=== PATIENT | male | born 1990 | race Caucasian/White ===

== ENCOUNTER 2025-03-13 12:32 | Emergency (ER) | payer BC, SELFPAY ==
--- OUTSIDE RECORDS SUMMARY | 2025-03-13 11:00 | XMS_ITS | Encounter Summary ---
Author Organization [facility] Address [address] [place], [place] [id number] Phone [email or web address] Care Team Providers Care Car Spotter Name Role Phone Provder, No Primary Care Provider Unavailabl e Reason for Visit * Reason Comments Heart Issue Encounter Details Date Type Department Care Team (Latest Contact Info) Description 03/13/2025 11:00 AM EDT Clinical Support [facility] [place] [id number] [facility] [address] [place] [address] Julieta Newton MD [address] [place] [address] Chest pain, unspecified type (Primary Dx) Social History Tobacco Use Types Packs/Day Years Used Date Smoking Tobacco: Never Smokeless Tobacco: Current Tobacco Cessation:Ready to Q uit: Not Asked; Counseling Given: Not Answered Intimate Partner Violence Answer Date R ecorded Insults You Not on file 10/01/2020 Threatens You Not on file 10/01/2020 Screams at You Not on file 10/01/2020 Physically Hurt Not on file 10/01/2020 Intimate Partner Violence Score Not on file 10/01/2020 Depression Answer Date Recorded PHQ Total Score 0 05/18/2022 Stress Answer Date Recorded Stress in your Life Not on file 04/23/2024 Dealing with Stress 3 04/23/2024 Sex and Gender Information Value Date Recorded Sex Assigned at Not on file Legal Sex Male 12:17 PM CDT Gender Identity Not on file Sexual Orientation Not on file documented as of this encounter Last Filed Vital Signs Vital Sign Reading Time Taken Comments Blood Pressure 153/104 03/13/2025 10:38 AM EDT Pulse 78 03/13/2025 10:38 AM EDT Temperature - - Respiratory Rate 16 03/13/2025 10:38 AM EDT Oxygen Saturation 98% 03/13/2025 10:38 AM EDT Inhaled Oxygen Concentration - - Weight - - Height - - Body Mass Index - - documented in this encounter Patient Instructions * Patient Instructions* Julieta Newton MD - 03/13/2025 11:00 AM EDT Go to ED of choice RTC when released to work without restrictions documented in this encounter Progress Notes * Julieta Newton MD - 03/13/2025 11:00 AM EDT Subjective [place] is a 34 y.o. male. WD ID: [id number] Employer: [employer] Date of Hire: 03/2019 Cost Center: [id number] Description: Team: Shift: 1 Full-time GL and #: Kwame Dejesus Walk-in Onset: 7:00am Symptoms: Chest cramping, SOB, fatigue, and MARKS Notes: FIONA states that he has been having CP, and SOB intermittently for the last 3 weeks. TM statesat 700am today he started getting the chest cramping again and it was hard to take deep breaths. FIONAwas told by who work at [facility] that he should come into the clinic to get checked out. FIONA has an appointment with PCP Jennifer Crockett at [facility] on 03/20/25. TM denies any pmhx. TM states that he does have a significant family hx of heart issues. TM states they his brother and mother both have hx of congenital heart defect. TM states his brother did not know until he was 32 after having a stroke. Triage nurse: JANA RN This was an emergency call with a disruption in patient care and scheduled clinic appointments. History Reviewed: Tobacco Allergies Meds Problems HPI FIONA is a 34 y/o male who walks into the clinic with shortness of breath and headache. TM apparently has been having intermittent shortness of breath with and without chest pain for the past 3 weeks. He also has been having headaches which he calls migraines . He reportedly could not get an appointment with his PCP sooner than 03/20/25. He woke up with a headache this morning. At ~ 7 am, he began having chest cramping and difficulty breathing. He talked to his who works as a production clerks supervisor at [employer]. His told him to see an outside provider thus this visit. As stated above, his mother and brother have congenital heart disease. With the exception of a headache,TM is currently without chest pain or dyspnea. I explained to the TM that the clinic is limited in its capacity to evaluate and treat. I advised TM to go to ED. TM declined ALS transport and signed AMA. But he reportedly would drive himself to [facility] ED. Review of Systems Constitutional: Negative for chills and fever. Eyes: Negative for visual disturbance. Respiratory: Negative for cough. Cardiovascular: Negative for palpitations and leg swelling. Musculoskeletal: Negative for neck pain and neck stiffness. Neurological: Positive for facial asymmetry. Negative for dizziness, seizures, syncope, speech difficulty, light-headedness and numbness. 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 Constitutional: General: He is not in acute distress. Appearance: Normal appearance. He is not ill-appearing or diaphoretic. Eyes: Extraocular Movements: Extraocular movements intact. Pupils: Pupils are equal, round, and reactive to light. Cardiovascular: Rate and Rhythm: Normal rate and regular rhythm. Pulses: Normal pulses. Heart sounds: Normal heart sounds. Pulmonary: Effort: Pulmonary effort is normal. Breath sounds: Normal breath sounds. Chest: Chest wall: No tenderness. Abdominal: General: Bowel sounds are normal. Palpations: Abdomen is soft. Musculoskeletal: Cervical back: Normal range of motion and neck supple. No rigidity or tenderness. Neurological: General: No focal deficit present. Mental Status: He is alert and oriented to person, place, and time. Gait: Gait normal. Comments: Asymmetrical smile due to h/o post-op nerve damage on left. Psychiatric: Mood and Affect: Mood normal. Behavior: Behavior normal. ECG READING: sinus rhythm, no acute changes Assessment: ICD-10-CM ICD-9-CM 1. Chest pain, unspecified type R07.9 786.50 POCT glucose ECG 12 lead Orders Placed This Encounter Procedures POCT glucose ECG 12 lead Patient Instructions Go to ED of choice RTC when released to work without restrictions documented in this encounter Plan of Treatment Not on file documented as of this encounter Procedures Procedure Name Priority Date/Time Associated Diagnosis Comments ECG 12-LEAD Routine 03/13/2025 11:51 AM EDT Chest pain, unspecified type POCT GLUCOSE Routine 03/13/2025 11:19 AM EDT Chest pain, unspecified type documented in this encounter Results * ECG 12 lead (03/13/2025 11:51 AM EDT) Julieta Hwang MD - 03/13/2025 11:51 AM EDT sinus rhythm, no acute changes us Julieta Newton MD ECG ORDERABLES Final Res ult * POCT glucose (03/13/2025 11:19 AM EDT) Glucose, POC 95 65 - 99 mg/dL Glucose (Glucometer), POC IQC Yes, verified internal control performed correctly. Lot Number see comments Expiration Date see comments Blood (Blood, Capillary) 03/13/2025 11:19 AM EDT us Julieta Newton MD POINT OF CARE TEST ORDERA BLES Final Result documented in this encounter Visit Diagnoses Diagnosis Chest pain, unspecified type- Primary documented in this encounter Care Teams Car Spotter Relationship Specialty Start [place] [id number] PCP - General Detonator Assembler 04/26/19 documented as of this encounter
[2025-03-13 12:32] VITALS: BP 150/111; PULSE 69; RESP 20; TEMP 36.8; O2SAT 98; BMI 29.0
--- NOTE | 2025-03-13 12:34 | ECG_ITS ---
APPROVED REPORT Exam: Resting ECG HR:59 bpm ECG Measurements Heart Rate 59 AXES OK 172 P 50 QRSd 100 QRS 11 QT 387 T 38 QTc 386 Conclusion SINUS BRADYCARDIA POSSIBLE RIGHT VENTRICULAR CONDUCTION DELAY [RSR (QR) IN V1/V2] BORDERLINE ECG UNCONFIRMED REPORT Sinus bradycardia. No ST elevation or depression Electronically signed by : PUNEET GOMEZ, 03/13/2025 15:25:00
--- NOTE | 2025-03-13 12:47 | XR_ITS ---
FINAL REPORT CLINICAL HISTORY: short of breath FINDINGS: A portable view of the chest is obtained. There is no prior exam for comparison. Cardiac and mediastinal silhouettes are normal. The lungs are clear. There is no pleural effusion or pneumothorax. IMPRESSION: No acute process on this portable exam. Reviewed, Interpreted and Dictated by Allyson Keller MD Transcribed by Melani Yang Authenticated and [facility]
--- NOTE | 2025-03-13 12:50 | ED_ITS ---
<Statement entered by Rodney Rangel MD - 03/14/25 12:47> I was consulted by the DESHAUN, and we discussed the complexity of the problems being addressed. I approve the treatment and management plan for this patient's care in the emergency department, thus performing a substantive portion of the medical decision making. Rodney Rangel MD Discharge Plan Disposition Patient Disposition: Home, Self-Care Referrals Follow up/Referrals: Shelby Salcedo [Primary Care Provider, Medical] - See instructions David Pearson MD [Staff Physician, Cardiology] - See instructions Activity Restrictions/Add. Instructions Additional Instructions/Restrictions: Please call Dr. Pearson's office for an appointment after the 48-hour Holter monitor has resulted. Return to the ED for any further chest pain or shortness of air. Clinical Impressions Clinical Impression: Chest pain Instructions Patient Instructions: DI for Atypical Chest Pain Print Language Print Language: Venezuelan Discharge ED Provider: Rodney Rangel HPI <Rodney Rangel MD - Last Filed: 03/13/25 12:54> General Chief Complaint: Chest Pain Stated Complaint: chest pain Time Seen by Provider: 03/13/25 12:40 Related Data Allergies Allergy/AdvReac Type Severity Reaction Status Date / Time No Known Allergies Allergy Verified 03/13/25 12:37 <Cayla Stevens (ED), CHEMIST HELPER - Last Filed: 03/13/25 18:54> General Mode of Arrival: Ambulatory Source of Information: Patient Description of Symptoms (Recalled from ER Triage Doc. by RN): patient presents to the ED for chest pian. patient was at work when he started having severe chest pain that radiated down his left arm. patient also stated this has been intermittently occuring for 3 weeks. he also has stated his heart has been racing on and off for 3 weeks. History of Present Illness HPI narrative: 34-year-old male presents to the ED today for chest pain for the last 3 weeks. He has had chest pain that has been sharp and intermittent on the left side of his chest. He has also had shortness of breath and racing heart. He said he will have shortness of breath all day while he is working. The chest pain will usually come on once he is gotten home and he is doing nothing. He says he has been having palpitations and he went to [facility] at [facility] and had them check his blood pressure and it was 153/102. At this time he was having chest pain and shortness of breath with palpitations. They told him to go to the ER. Patient had a migraine earlier this morning with some nausea. He took 2 Tylenol and it has improved but he still has a headache. No vision changes. Patient is stable to care with Supriya, who is a nurse practitioner but started having all the symptoms so he did not make it to that appointment. His brother had a stroke from a heart murmur his mom had a stroke from a heart murmur and his grandfather has polycythemia vera. He is concerned about all of the symptoms. [facility] <Rodney Rangel MD - Last Filed: 03/13/25 12:54> [facility] Social History (Updated 03/13/25 @ 18:51 by Cayla Stevens (ED), CHEMIST HELPER) Smoking Status: Never smoker alcohol intake: former current occupational status: employed Travel in the last 8 weeks?: None <Cayla Stevesn (ED), CHEMIST HELPER - Last Filed: 03/13/25 18:54> [facility] Disclaimer: The information contained in this section may have been updated after the patient was seen, as this information can be updated by other users. <Cayla Stevens (ED), CHEMIST HELPER - Last Filed: 03/13/25 18:54> ROS Obtained: Yes Systems reviewed as appropriate & no additional complaints except as documented Constitutional Constitutional: Reports as per HPI Physical Exam <Cayla Stevens (ED), CHEMIST HELPER - Last Filed: 03/13/25 18:54> General General appearance: alert Head Head exam: atraumatic and normocephalic Eye Eye exam: Present PERRL ENT ENT exam: Present mucous membranes moist Respiratory Respiratory exam: Present normal lung sounds bilaterally Cardiovascular Cardiovascular exam: Present regular rate Abdominal Exam Abdominal exam: Present soft and normal bowel sounds Extremities Exam Extremities exam: Present full ROM Neurological Exam Neurological exam: Present alert and oriented X3 Skin Skin exam: Present warm, dry and intact HEART Score <Cayla Stevens (ED), CHEMIST HELPER - Last Filed: 03/13/25 18:54> HEART Score HEART Score assessment performed?: Yes History (anamnesis): Slightly suspicious ECG: Normal Age: <45 years Risk factors: No known risk factors Troponin: </= normal limit HEART Score: 0 Critical Care <Cayla Stevens (ED)BUFFY - Last Filed: 03/13/25 18:54> Critical Care Time Critical Care Time: No Medical Decision Making <Rodney Rangel MD - Last Filed: 03/13/25 12:54> Vital Signs Vital Signs: 03/13/25 12:32 03/13/25 13:03 03/13/25 14:41 Temperature 98.2 F 98.2 F Temperature Source Temporal Artery Scan Oral Pulse Rate 70 74 Pulse Rate [Right Radial] 69 Respiratory Rate 20 18 Blood Pressure 133/92 H Blood Pressure [Right Arm] 150/111 H Blood Pressure Mean [Right Arm] 124 Blood Pressure Source Automatic Cuff Blood Pressure Source [Right Arm] Automatic Cuff Blood Pressure Position Sitting Blood Pressure Position [Right Arm] Sitting 02 Sat by Pulse Oximetry 98 Oxygen Delivery Method Room Air Room Air Lab Data Labs: Lab Results 03/13/25 12:49: WBC 5.6, RBC 5.26, Hgb 15.6, Hct 45.9, MCV 87.3, MCH 29.7, MCHC 34.0, RDW 11.9, Plt Count 274, MPV 9.4, Neut % (Auto) 66.4, Lymph % (Auto) 22.6, Stanly % (Auto) 8.9, Eos % (Auto) 1.4, Baso % (Auto) 0.5, Neut # (Auto) 3.7, Lymph # (Auto) 1.3, Stanly # (Auto) 0.5, Eos # (Auto) 0.1, Baso # (Auto) 0.0, D-Dimer 0.39, Sodium 136, Potassium 3.9, Chloride 100, Carbon Dioxide 28, Anion Gap 11.9, BUN 15, Creatinine 0.90, Estimated Creat Clear 135, Estimated GFR 97, Est GFR ( Amer) 118, Glucose 99, Calcium 9.8, Magnesium 1.8, Total Bilirubin 0.6, AST 32, ALT 34, Alkaline Phosphatase 70, Troponin I < 0.01, Total Protein 7.9, Albumin 4.9, Globulin 3.0, Albumin/Globulin Ratio 1.6, Lipase 117, TSH 0.83 03/13/25 12:49 03/13/25 12:49 Response Orders (Tests/Meds): ED MEDICATIONS Discontinued Medications Generic Name Dose Route Start Last Admin Trade Name Chad PRN Reason Stop Dose Admin Morphine Sulfate 4 mg 03/13/25 12:48 03/13/25 12:54 Morphine 4mg/Ml Syringe IV 03/13/25 12:49 4 mg ONCE ONE Administration Ondansetron HCl 4 mg 03/13/25 12:48 03/13/25 12:54 Ondansetron 4mg/2ml Vial IV 03/13/25 12:49 4 mg ONCE ONE Administration ORDERS Category Date Time Status Chest XR -- portable [XR chest portable] Stat Exams 03/13/25 12:47 Completed CBC [Complete Blood Count Auto Diff] Stat Lab 03/13/25 12:49 Completed Comprehensive Metabolic Panel Stat Lab 03/13/25 12:49 Completed D-Dimer Stat Lab 03/13/25 12:49 Completed Lipase Stat Lab 03/13/25 12:49 Completed Magnesium Stat Lab 03/13/25 12:49 Completed TSH [Thyroid Stimulating Hormone] Stat Lab 03/13/25 12:49 Completed Trop I [Troponin I] Stat Lab 03/13/25 12:49 Completed ECG holter initial pfn Stat Y 03/13/25 13:57 Completed ECG Data Tracing #1: Attestation: I reviewed this ECG and interpreted as documented below: ECG Narrative: Sinus bradycardia. Ventricular rate of [address] elevation or depression. QTc normal at 386 <Cayla Stevens (ED), CHEMIST HELPER - Last Filed: 03/13/25 18:54> Matthieu Inquiry Pt receiving controlled substance: No Matthieu was queried for this patient: No Vital Signs Vital Signs: 03/13/25 12:32 03/13/25 13:03 03/13/25 14:41 Temperature 98.2 F 98.2 F Temperature Source Temporal Artery Scan Oral Pulse Rate 70 74 Pulse Rate [Right Radial] 69 Respiratory Rate 20 18 Blood Pressure 133/92 H Blood Pressure [Right Arm] 150/111 H Blood Pressure Mean [Right Arm] 124 Blood Pressure Source Automatic Cuff Blood Pressure Source [Right Arm] Automatic Cuff Blood Pressure Position Sitting Blood Pressure Position [Right Arm] Sitting 02 Sat by Pulse Oximetry 98 Oxygen Delivery Method Room Air Room Air Lab Data Labs: Lab Results 03/13/25 12:49: WBC 5.6, RBC 5.26, Hgb 15.6, Hct 45.9, MCV 87.3, MCH 29.7, MCHC 34.0, RDW 11.9, Plt Count 274, MPV 9.4, Neut % (Auto) 66.4, Lymph % (Auto) 22.6, Stanly % (Auto) 8.9, Eos % (Auto) 1.4, Baso % (Auto) 0.5, Neut # (Auto) 3.7, Lymph # (Auto) 1.3, Stanly # (Auto) 0.5, Eos # (Auto) 0.1, Baso # (Auto) 0.0, D-Dimer 0.39, Sodium 136, Potassium 3.9, Chloride 100, Carbon Dioxide 28, Anion Gap 11.9, BUN 15, Creatinine 0.90, Estimated Creat Clear 135, Estimated GFR 97, Est GFR ( Amer) 118, Glucose 99, Calcium 9.8, Magnesium 1.8, Total Bilirubin 0.6, AST 32, ALT 34, Alkaline Phosphatase 70, Troponin I < 0.01, Total Protein 7.9, Albumin 4.9, Globulin 3.0, Albumin/Globulin Ratio 1.6, Lipase 117, TSH 0.83 Response Orders (Tests/Meds): ED MEDICATIONS Discontinued Medications Generic Name Dose Route Start Last Admin Trade Name Chad PRN Reason Stop Dose Admin Morphine Sulfate 4 mg 03/13/25 12:48 03/13/25 12:54 Morphine 4mg/Ml Syringe IV 03/13/25 12:49 4 mg ONCE ONE Administration Ondansetron HCl 4 mg 03/13/25 12:48 03/13/25 12:54 Ondansetron 4mg/2ml Vial IV 03/13/25 12:49 4 mg ONCE ONE Administration ORDERS Category Date Time Status Chest XR -- portable [XR chest portable] Stat Exams 03/13/25 12:47 Completed CBC [Complete Blood Count Auto Diff] Stat Lab 03/13/25 12:49 Completed Comprehensive Metabolic Panel Stat Lab 03/13/25 12:49 Completed D-Dimer Stat Lab 03/13/25 12:49 Completed Lipase Stat Lab 03/13/25 12:49 Completed Magnesium Stat Lab 03/13/25 12:49 Completed TSH [Thyroid Stimulating Hormone] Stat Lab 03/13/25 12:49 Completed Trop I [Troponin I] Stat Lab 03/13/25 12:49 Completed ECG holter initial pfn Stat Y 03/13/25 13:57 Completed MDM Narrative Medical Decision Narrative: patient is a 34-year-old male presenting to the emergency department for evaluation of chest pain, heart racing and shortness of breath. Patient is hemodynamically stable and nontoxic-appearing upon arrival, afebrile. Differential diagnosis includes ACS,. Workup will be conducted with hematologic labs, specific imaging. Initial inventions include crystalloid bolus, analgesics. Initial workup reviewed by me hematologic labs are remarkable for troponin was normal. Other labs are nonactionable. Chest x-ray was normal read by myself. Radiology read as no acute findings. I did like to place patient on Holter monitor and send to cardiology outpatient. will call cardiology office for appointment after Holter has resulted. Patient safe for discharge home.
[2025-03-13] MEDS: MORPHINE 4MG/ML SYRINGE 4 MG IV (12:54)
[2025-03-13] MEDS: ONDANSETRON 4MG/2ML VIAL 4 MG IV (12:54)
[2025-03-13 12:56] LABS: Hematocrit 45.9 % (42.0-52.0); Hemoglobin 15.6 g/dL (14.1-18.0); Immature Granulocytes % 0.2 %; Mean Corpuscular HGB Conc 34.0 g/dL (31.8-35.4); Mean Corpuscular Hemoglobin 29.7 pg (27.0-31.2); Mean Corpuscular Volume 87.3 fl (80-94); Nucleated Red Blood Cells % 0 %; Platelet Count 274 K/mm3 (142-424); Red Blood Count 5.26 M/mm3 (4.60-6.20); Red Cell Distribution Width-SD 38.5 fL; White Blood Count 5.6 K/mm3 (4.8-10.8)
[2025-03-13 13:03] VITALS: PULSE 70
[2025-03-13 13:09] LABS: Alanine Aminotransferase 34 U/L (12-78); Albumin Level 4.9 g/dl (3.5-5.0); Albumin/Globulin Ratio 1.6 (1.1-1.8); Alkaline Phosphatase 70 U/L (38-126); Anion Gap 11.9 mEq/L (5-15); Aspartate Amino Transferase 32 U/L (17-59); Bilirubin,Total 0.6 mg/dl (0.2-1.3); Blood Urea Nitrogen 15 mg/dl (9-20); Calcium 9.8 mg/dl (8.4-10.2); Carbon Dioxide 28 mmol/L (22.0-30.0); Chloride 100 mmol/L (98-107); Creatinine Clearance Estimated 135 mL/min (50-200); Creatinine,Serum 0.90 mg/dl (0.66-1.25); Estimated Glomerular Filt Rate 97 ml/min (>60); GFR (African American) 118 ML/MIN (>60); Globulin 3.0 g/dL (1.3-3.2); Glucose 99 mg/dl (74-100); Lipase 117 U/L (23-300); Magnesium 1.8 mg/dl (1.6-2.3); Potassium 3.9 mmoL/L (3.5-5.1); Sodium 136 mmol/L (136-145); Total Protein,Serum 7.9 g/dl (6.3-8.2)
[2025-03-13 13:14] LABS: D-Dimer 0.39 ug/mL (0.0-0.5)
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
[2025-03-13 13:40] LABS: Thyroid Stimulating Hormone 0.83 uIU/mL (0.465-4.68)
[2025-03-13 13:49] LABS: Troponin I < 0.01 ng/ml (0.00-0.034)
--- NOTE | 2025-03-13 13:59 | PC.NURSE ---
RT notified of need for holter monitor
[2025-03-13 14:41] VITALS: BP 133/92; PULSE 74; RESP 18; TEMP 36.8; O2SAT 99
== END 2025-03-13 14:41 | disposition home or self-care (01) ==
PROVIDERS: Nurse Practitioner; Emergency Provider Student in an Organized Health Care Education/Training Program; PCP Family Medicine
DX: R07.9 Chest pain, unspecified (principal); R06.02 Shortness of breath; R00.1 Bradycardia, unspecified; R51.9 Headache, unspecified; R11.0 Nausea
CPT/HCPCS: 71045; 80053; 83690; 83735; 84443; 84484; 85025; 85378; 93005; 93225; 93227; 96374; 96375; 99285; J2270; J2405

== ENCOUNTER 2025-03-18 09:37 | Outpatient (CLI) | payer BC, SELFPAY ==
--- OUTSIDE RECORDS SUMMARY | 2025-03-13 11:00 | XMS_ITS | Encounter Summary ---
Author Organization [facility] Address [address] [place], [place] [id number] Phone [email or web address] [email or web address] Care Team Providers Care Digital Solutions Architect Name Role Phone Provder, No Primary Care Provider Unavailabl e Reason for Visit * Reason Comments Heart Issue Encounter Details Date Type Department Care Team (Latest Contact Info) Description 03/13/2025 11:00 AM EDT Clinical Support [facility] [place] [address] [facility] [address] [place] [address] Julieta Newton MD [address] [place] [address] Chest pain, unspecified type (Primary [...] is a 34 y.o. male. WD ID: [id number] Employer: [employer] Date of Hire: 03/2019 Cost [...] breaths. FIONAwas told by who work at [facility] that he should come into the clinic to get checked out. FIONA has an appointment with PCP Jennifer Crockett at [facility] on 03/20/25. TM denies any pmhx. TM [...] talked to his who works as a wrapping clerk at [employer]. His told him to see an outside [...] But he reportedly would drive himself to [facility] ED. Review of Systems Constitutional: Negative for [...] Primary documented in this encounter Care Teams Digital Solutions Architect Relationship Specialty Start Date [place] [address] PCP - General Dye Range Tender 04/26/19 documented as of this encounter
--- OUTSIDE RECORDS SUMMARY | 2025-03-18 09:40 | XMS_ITS | Clinical Summary ---
Author Organization [facility] Address [address] [place] [address] Phone Care Team Providers Care Bakery Chef Name Role Phone Shelby Salcedo MD Primary Care Provider [phone] Allergies No known active allergies Medications nalOXone (NARCAN) 4 mg/actuation Nasl [place], Non-Aerosol 0.1 mL by Nasal route as needed for Opioid Reversal. 1 Each 4 Active Additional Information Patient not taking.Reason: Pt electing to not take the medication, Reported on 11/16/2023 ibuprofen (ADVIL;MOTRIN) 400 mg Oral Tablet Take 400 mg by mouth every 8 hours as needed for Pain. Active traMADoL (ULTRAM) 50 mg Oral Tablet Take 1-2 Tablets by mouth every 6 hours as needed for Pain. 30 Tablet 11/16/2023 4:58 PM EDT Active Active Problems Problem Noted Date Diagnosed Date Ureterolithiasis 10/14/2023 Kidney stone 07/21/2015 Intractable pain 07/21/2015 ORLIN (acute kidney injury) 07/21/2015 Hydronephrosis with urinary obstruction due to ureteral calculus Resolved Problems Problem Noted Date Diagnosed Date Resolved Date Hydronephrosis 07/21/2015 10/14/2023 Dehydration, moderate 07/21/20152023 Immunizations Immunization Administration Dates Next Due DTaP 11/28/1995, 3,1991,1991,1991 Hepatitis B, Unspecified Formulation 10/03/2002, 08/29/2001,07/12/2001 HiB, Unspecified Formulation 1991, 1991,1991,1990 Influenza Vaccine Quadrivalent 05/02/2014 MMR 10/19/1996,11/28/1995 Meningococcal Conjugate 03/01/2011 OPV 11/28/1995, 3,1991,1990 OPV-Trivalent 11/28/1995, 3,1991,1990 Tdap 11/06/2018, 3,03/01/2011,2003 Surgical History Surgery Date Site/Laterality Comments CYST REMOVAL unknown neck SHOULDER SURGERY left FOOT SURGERY 06/20/2001 - 06/19/2002 bilat congential repair of both ankles pins and donor bones FINGER CLOSED REDUCTION 07/13/2012 Right RIGHT INDEX FINGER EXPLORATION CLOSED REDUCTION PERCUTANEOUS PINNING REVISION AMPUTATION; Surgeon: Jovon Diamond MD; Location: [facility]; Service: Hand Medical devices from this surgery are in the Medical Devices section. FINGER AMPUTATION 07/13/2012 Surgeon: Jovon Diamond MD; Location: [facility]; Service: Hand Medical devices from this surgery are in the Medical Devices section. CYSTOSCOPY 07/22/2015 N/A CYSTOSCOPY LEFT URETEROSCOPY LASER LITHOTRIPSY STENT INSERTION ; Surgeon: Donavon Silver MD; Location: [facility]; Service: Urology Medical devices from this surgery are in the Medical Devices section. CYSTOSCOPY 07/22/2015 Surgeon: Donavon Silver MD; Location: [facility]; Service: Urology Medical devices from this surgery are in the Medical Devices section. KIDNEY SURGERY kidney stone removal CYSTOSCOPY 10/15/2023 Right CYSTOSCOPY RIGHT STENT INSERTION WITH RIGHT RETROGRADE; Surgeon: Fernanda Najera MD; Location: [facility]; Service: Urology Medical devices from this surgery are in the Medical Devices section. CYSTOSCOPY 10/15/2023 Surgeon: Fernanda Najera MD; Location: [facility]; Service: Urology Medical devices from this surgery are in the Medical Devices section. LITHOTRIPSY 11/16/2023 Right RIGHT EXTRACORPOREAL SHOCK WAVE THERAPY LITHOTRIPSY WITH CYSTOSCOPY RIGHT STENT REMOVAL; Surgeon: Israel Mayes MD; Location: [facility]; Service: Urology Medical devices from this surgery are in the Medical Devices section. Medical History Medical History Date Comments Chickenpox Kidney stones Family History Medical History Relation Name Comments High Blood Pressure Father Anesth Problems Neg Hx Relation Name Status Comments Father Alive Social History Tobacco Use Types Packs/Day Years Used Date Smoking Tobacco: Never Smokeless Tobacco: Current Tobacco Cessation:Ready to Q uit: Not Asked; Counseling Given: Not Answered Comments:nicotine pouches Alcohol Use Standard Drinks/Week Comments Yes 2.8 (1 standard drink = 0.6 oz p ure alcohol) occasional [facility] Utilities Answer Date Recorded In the past 12 months has [employer] electric, gas, oil, or water [employer] threatened to shut off services in your home? No 10/14/2023 Overall Financial Resource Strain (CARDIA) Answe r Date Recorded How hard is it for you to pa y for the very basics like food, housing, medical care, and heating? Not very hard 10/14/2023 PHQ-2 Answer Date Recorded PHQ-2 Total Score 0 10/14/2023 [facility] [place] [facility] Occupat ional Health - Occupational Stress Questionnaire Answer Date Recorded Do you feel stress - tense, restless, nervous, or anxious, or unable to sleep at night because your mind is troubled all the time - these days? Only a little 10/14/2023 Exercise Vital Sign Answer Date Recorde d On average, how many days pe r week do you engage in moderate to strenuous exercise (like a brisk walk)? 5 days 10/14/2023 On average, how many minutes do you engage in exercise at this level? 40 min 10/14/2023 Hunger Vital Sign Answer Date Recorded Within the past 12 months, y ou worried that your food would run out before you got the money to buy more. Never true 10/14/19 24 Within the past 12 months, t he food you bought just didn't last and you didn't have money to get more. Never true 10/14/[address] [facility] IP Transportation Answer D ate Recorded In the past 12 months, has l ack of reliable transportation kept you from medical appointments, meetings, work or from getting things needed for daily living? No 10/14/2023 Sexually Active Control Partners Comments Yes Sex and Gender Information Value Date Recorded Sex Assigned at Not on file Legal Sex Male 11:23 PM EDT Gender Identity Not on file Sexual Orientation Not on file Last Filed Vital Signs Vital Sign Reading Time Taken Comments Blood Pressure 138/98 11/16/2023 5:32 PM EDT Pulse 56 11/16/2023 5:32 PM EDT Temperature 36.1 C (97 F) 11/16/2023 5:32 PM EDT Respiratory Rate 18 11/16/2023 5:32 PM EDT Oxygen Saturation 95% 11/16/2023 5:32 PM EDT Inhaled Oxygen Concentration - - Weight 81.6 kg (180 lb) 11/16/2023 12:24 PM EDT Height 167.6 cm (5' 6 ) 11/16/2023 12:24 PM EDT Body Mass Index 29.05 11/16/2023 12:24 PM EDT Plan of Treatment Health Maintenance Due Date Last Done Comments Annual Wellness Exam 1994 COVID-19 Vaccine ( season) 2025 Influenza Vaccine (#1) 2025 6 (Declined), 05/16/2015 (Declined), 05/02/2014 DTaP/TDaP/Td (10 - Td or Tdap) 11/06/2028 11/06/2018, 07/12/2012, 03/01/2011, Additional history exists Hepatitis B Vaccine Completed 10/03/2002, 08/29/2001, 07/12/2001 Meningococcal B Vaccine Aged Out No l onger eligible based on patient's age to complete this topic Pneumococcal Vaccine 0-49 Aged Out No longer eligible based on patient's age to complete this topic Goals Goal Patient Goal Type Associated Problems Recent Progress Patient-Stated? Author Maintain a healthy diet, exercise regularly and maintain an ideal body weight General No Shaista Zuñiga LPN Stay Tobacco Free Lifestyle No Shaista Zuñiga LPN Medical Devices Implanted Type Area Cello Teacher Device Identifier Shelf Expiration Date Model / Serial / Lot Stent Ureteral Contour 7fr X 26cm - [id number] Implanted:Qty: 1 on 07/22/2015 by Donavon Silver MD at [facility] Stent N/A: Ureter [employer]:MICROVASIVE: UROLOGY 11/13/2017 180-233 / / [id number] K-Wire \T\ Guide,.035 (0. 9mm) 1599-021 - [id number] Implanted:Qty: 1 on 07/13/2012 by Jovon Diamond MD at [facility] Right: Finger MICROAIRE SURG INSTR 03/13/2015 1600-021 / / [id number] K-Wire \T\ Guide,.035 (0. 9mm) 1599-021 - [id number] Implanted:Qty: 1 on 07/13/2012 by Jovon Diamond MD at [facility] Right: Finger MICROAIRE SURG INSTR 04/12/20151599-021 / / [id number] Explanted Type Area Cello Teacher Device Identifier Shelf Expiration Date Model / Serial / Lot Stent Uret [id number] Contr Dbl Pig Tapr Lpro Percuflx Cath - [id number] Implanted:Qty : 1 on 10/15/2023 by Fernanda Najera MD at [facility] Explanted:Qty : 1 on 11/16/2023 by Israel Mayes MD at [facility] Stent Right: Ureter [employer]:MICROVASIVE: UROLOGY [id number] 03/02/2026 [id number] / / [id number] Insurance PPO [employer] PPO Member Subscriber Plan / Payer (Ef fective 2020-Present) Name:[place] Relation to Subscriber:Self Name:[place] Payer ID:[id number] (NAIC) Type:Not on file Address: [address] [place] [id number] [employer] WORK[employer] COMP GENERIC WORKERS[employer] COMP PROGRESSIVE AUTO INS AA [facility] PPO PROGRESSIVE AUTO INS AA Advance Directives For more information, please contact: [phone] * Full Code (Latest Code Status on File) Date Activated Date Inactivated Comments 10/15/2023 9:59 AM 10/15/2023 11:51 PM * Full Code Date Activated Date Inactivated Comments 10/14/2023 8:31 PM 10/15/2023 9:59 AM * Full Code Date Activated Date Inactivated Comments 07/22/2015 5:14 PM 07/22/2015 10:21 PM Care Teams Bakery Chef Relationship Specialty Start Date End Date Shelby Salcedo MD [address] [place] [address] PCP - General Family Medicine 04/06/21
--- OUTSIDE RECORDS SUMMARY | 2025-03-18 09:40 | XMS_ITS | Encounter Summary ---
Author Organization [facility] Address [address] [place] [address] Phone [email or web address] [email or web address] Care Team Providers Care Coal Carrier Name Role Phone Provder, No Primary Care Provider Unavailabl e Encounter Details Date Type Department Care Team (Late st Contact Info) Description 03/13/[address] [place] [address] Leisa Pedro, RN [address] [place] [address] Social History Tobacco Use Types Packs/Day Years Used Date Smoking Tobacco: Never Smokeless Tobacco: Current Intimate Partner Violence Answer Date R ecorded [...] on file documented as of this encounter Progress Notes * Leisa Pedro RN - 03/13/2025 3:03 PM EDT Called to check on patient after signing AMA. TM states he made it to [facility] and had an EKG, and chest x-ray which came back good. TM was referred to cardiology and placed on holter monitor x48 hours. TM was told not to RTW until being seen by cardiology. TM states he knows LF contact and plans to contact them for coverage. TM advised he will need a release and to return through medical before returning to work. JANA RN documented in this encounter Plan of Treatment Not on file documented as of this encounter Visit Diagnoses Not on filedocumented in this encounter Care Teams Coal Carrier Relationship Specialty Start Date [place] [address] PCP - General Life Skills Teacher 04/26/19 documented as of this encounter
--- OUTSIDE RECORDS SUMMARY | 2025-03-18 09:41 | XMS_ITS | Clinical Summary ---
Author Organization [facility] Address [address] [place], [place] [phone] Phone [email or web address] [email or web address] Care Team Providers Care Quantitative Software Engineer Name Role Phone Provder, No Primary Care [...] Description 03/13/2025 11:00 AM EDT Clinical Support [address] [address] Julieta Newton MD Chest pain, unspecified type (Primary Dx) 03/13/[address] [address] Leisa Pedro RN from Last 3 Months Immunizations Immunization Administration [...] Screening - Triple Screen 2009 Covid-19 Immunization (1 - season) 2025 Influenza Immunization (#1) 2025 [...] Final Result from Last 3 Months Insurance OPT OUT NO COPAY NB Care Teams Quantitative Software Engineer Relationship Specialty Start [place] [address] PCP - General .Net Developer 04/26/19
[2025-03-18 10:25] LABS: Cholesterol 182 mg/dl (140-200); HDL Cholesterol 52 mg/dl (40-60); Triglycerides 112 mg/dl (30-150)
== END 2025-03-18 23:59 | disposition home or self-care (01) ==
LOC: LAB 09:38
PROVIDERS: PCP Nurse Practitioner Family; Visit Provider Nurse Practitioner
DX: I10 Essential (primary) hypertension (principal); R07.89 Other chest pain; R00.2 Palpitations
CPT/HCPCS: 36415; 80061; 93270

== ENCOUNTER 2025-04-02 08:17 | Outpatient (CLI) | payer BC, SELFPAY ==
--- OUTSIDE RECORDS SUMMARY | 2025-03-13 11:00 | XMS_ITS | Encounter Summary ---
Author Organization [facility] Address [address] [place], [place] [id number] Phone [email or web address] Care Team Providers Care Laboratory Tech Name Role Phone Provder, No Primary Care Provider Unavailabl e Reason for Visit * Reason Comments Heart Issue Encounter Details Date Type Department Care Team (Latest Contact Info) Description 03/13/2025 11:00 AM EDT Clinical Support [facility] [place] [address] [facility] [address] [place] [address] Julieta Newton MD [address] [place] [address] Chest pain, unspecified type (Primary [...] is a 34 y.o. male. WD ID: [id number] Employer: [employer] Date of Hire: 03/2019 Cost [...] breaths. FIONAwas told by who work at [facility] that he should come into the clinic to get checked out. FIONA has an appointment with PCP Jennifer Crockett at [facility] on 03/20/25. TM denies any pmhx. TM [...] talked to his who works as a sales clerk supervisor at [employer]. His told him to see an outside [...] But he reportedly would drive himself to [facility] ED. Review of Systems Constitutional: Negative for [...] Primary documented in this encounter Care Teams Laboratory Tech Relationship Specialty Start Date [place] [address] PCP - General Funeral Director 04/26/19 documented as of this encounter
--- OUTSIDE RECORDS SUMMARY | 2025-04-02 08:41 | XMS_ITS | Encounter Summary ---
Author Organization [facility] Address [address] [place] [address] Phone [email or web address] [email or web address] Care Team Providers Care Water Well Driller Name Role Phone Provder, No Primary Care Provider Unavailabl e Encounter Details Date Type Department Care Team (Late st Contact Info) Description 03/13/[address] [place] [address] Leisa Pedro, RN [address] [place] [address] Social History Tobacco Use Types [...] on filedocumented in this encounter Care Teams Water Well Driller Relationship Specialty Start Date [place] [address] PCP - General Pbx Inspector 04/26/19 documented as of this encounter
--- OUTSIDE RECORDS SUMMARY | 2025-04-02 08:43 | XMS_ITS | Clinical Summary ---
Author Organization [facility] Address [address] [place], [place] [phone] Phone [email or web address] [email or web address] Care Team Providers Care Vegetable Buncher Name Role Phone Provder, No Primary Care [...] Description 03/13/2025 11:00 AM EDT Clinical Support [address] [address] Julieta Newton MD Chest pain, unspecified type (Primary Dx) 03/13/[address] [address] Leisa Pedro RN from Last 3 Months [...] OPT OUT NO COPAY NB Care Teams Vegetable Buncher Relationship Specialty Start Date [place] [address] PCP - General Grape Cutter 04/26/19
--- NOTE | 2025-04-02 08:45 | CA_ITS ---
APPROVED REPORT EXAM: Comprehensive 2D, Doppler, and color-flow Echocardiogram Brick Wheeler: Janie Blankenship CRT Ht: 5 ft 6 in Wt: 186lbs BSA: 1.94 BP: 136/94 mmHg Indications: Chest Pain, Shortness of Breath, Palpitations, Hypertension/HDD, Echo Enhancing Agent Indication: Rule out Shunt Agent(s) / Amount(s) Used: Agitated Saline 5 cc Comments: Bubble study ordered due to family history of PFO mother and brother, brother CVA with repair 2D Dimensions LA Volume 35.90 mL LA Volume Index 18.00 mL/m2 (M/F) 16-34 M-Mode Dimensions RVDd 2.78 cm (0.9-2.6) LA Diam 3.79 cm (1.9-4.0) LVDd 4.56 cm (3.5-5.7) LVDs 3.25 cm (3.5-5.7) IVSd 1.25 cm (0.6-1.1) PWd 0.94 cm (0.6-1.1) EF (Teich) 55.50% FS 28.70% EDV (Teich) 95.40 mL TAPSE 2.40 (<1.7) ESV (Teich) 42.50 mL LV Diastology E Decel Time 150 (160-240 msec) E/A Ratio 1.45 MED A' 6.70 cm/s LAT A' 7.80 cm/s Aortic Valve AO Peak GR. 4.40 mmHg Mitral Valve MV E Max Misael. 82.0 (40-130 cm/s) MV A Velocity 57.0 (40-130 cm/s) E/A Ratio 1.45 MV PHT 44.0 ms Pulmonary Valve PV Peak Velocity 103.0 (50-150 cm/s) Tricuspid Valve TR P. Velocity 260.00 cm/s RAP Estimate 10.00 mmHg RVSP 37.10 mmHg Left Ventricle The left ventricle is normal size. Left ventricular systolic function is normal. The left ventricular ejection fraction is within the normal range. There is normal left ventricular wall thickness. There is normal LV segmental wall motion. The left ventricular diastolic function is normal. LVEF is 55% Right Ventricle The right ventricle is normal size. The right ventricular systolic function is normal. Atria The left atrium size is normal. The right atrium size is normal. There is no color Doppler evidence of interatrial shunt. Agitated saline administration demonstrates no evidence of interatrial shunt. Aortic Valve The aortic valve opens well. There is no hemodynamically significant aortic valvular stenosis. No aortic regurgitation is present. Mitral Valve The mitral valve is normal in structure. No evidence of mitral valve stenosis. Mild mitral regurgitation is present. Tricuspid Valve The tricuspid valve leaflets are thin and pliable. Mild tricuspid regurgitation. RVSP is 20-25 mmHg. Pulmonic Valve The pulmonary valve is grossly normal in structure. Trace pulmonic valve regurgitation is present. Great Vessels The aortic root is normal in size. IVC is normal in size and collapses >50% with inspiration. Pericardium There is no pericardial effusion. Other Information Study Quality: Fair Conclusion Normal biventricular systolic function. Mild MR, mild TR. There is no color Doppler evidence of interatrial shunt. Agitated saline administration demonstrates no evidence of interatrial shunt. Electronically signed by : Marisa Esquivel MD 04/02/2025 14:33:12
[2025-04-02 09:30] VITALS: BP 127/90; BP 178/102; PULSE 54; RESP 14
--- NOTE | 2025-04-02 10:00 | CA_ITS ---
APPROVED REPORT Exam: Exercise Treadmill Technologist: Hawa Rodriguez Ht: 5 ft 6 in Wt: 186 lbs BSA: 1.94 m2 HR: 54 bpm BP: 127/90 mmHg Indications: Dyspnea Stress Test Details Test: Exercise stress testing was performed using a Darrius protocol. HR Resting HR: 54 bpm Max Heart Rate (APMHR): 186 bpm Max HR Achieved: 162 bpm Target HR (85% APMHR): 158 bpm % of APMHR: 87 Recovery HR: 83 bpm BP Resting BP: 127.0/90.0 mmHg Max BP: 178.0/102.0 mmHg Recovery BP: 135.0/97.0 mmHg ECG Resting ECG: Sinus rhythm Stress ECG Conclusion Test stopped at 9:12 minutes due to target heart rate achieved, leg fatigue. Symptoms: None Arrhythmias/Ectopy: None ST-T Changes: Less than 0.[address] segment changes. Conclusion: Glez treadmill score: +9 Electronically signed by : Marisa Esquivel MD 04/02/2025 13:16:38
== END 2025-04-02 23:59 | disposition home or self-care (01) ==
LOC: RT 08:17
PROVIDERS: PCP Nurse Practitioner Family; Visit Provider Nurse Practitioner
DX: I08.1 Rheumatic disorders of both mitral and tricuspid valves (principal); I10 Essential (primary) hypertension
CPT/HCPCS: 93017; 93018; 93306